=== PATIENT | female | born 1990 | race Caucasian/White ===

== ENCOUNTER → 2022-03-02 | Emergency (ER) | payer MEDICAID ==
[~2022-03-02] VITALS: Ht 154.9 cm; Wt 123.2 kg
[~2022-03-02] MED LIST: CefTRIAXone 500MG IM Kit w/LIDOcaine IM ONE; DOXY-1 PO; DOXYCYCLINE 100MG CAPSULE PO STA; PENICILLIN G BENZATHINE 2,400,000 UNIT/4 ML SYRINGE IM ONE
[2022-03-02 14:53] VITALS: BP 120/49
== END | disposition home or self-care (01) ==
LOC: ER 14:14
DX: A63.8 Other specified predominantly sexually transmitted diseases (principal); Z88.8 Allergy status to other drugs, medicaments and biological substances; Z79.899 Other long term (current) drug therapy
CPT/HCPCS: 36415; 86592; 87491; 87591; 96372; 99284; J0561; J0696